=== PATIENT | female | born 1990 | race Asian ===

== ENCOUNTER 2017-01-04 09:38 | Inpatient (IN) | payer SELFPAY ==
[~2017-01-04] VITALS: Ht 171 cm; Wt 72.6 kg
[2017-01-22] MEDS ORDERED: OXYTOCIN 20 UNITS/LR PREMIX 1,000 ML IV SCH ×2 (01:52→16:35)
[2017-01-22] MEDS ORDERED: PROMETHAZINE 25 MG/ML VIAL IVP PRN (01:55)
[2017-01-22] MEDS ORDERED: OXYTOCIN 10 UNITS/ML VIAL IM ONE (01:55)
[2017-01-22] MEDS ORDERED: METHYLERGONOVINE 0.2 MG/ML AMP IM SCH (01:55)
[2017-01-22] MEDS ORDERED: CARBOPROST 250 MCG/ML AMP IM PRN (01:55)
[2017-01-22] MEDS ORDERED: NALBUPHINE 10 MG/ML AMP IVP PRN (01:55)
[2017-01-22] MEDS: LACTATED RINGERS 1,000 ML IV SCH ×3 (01:58→07:50)
[2017-01-22] MEDS ORDERED: ceFAZolin 1,000 MG VIAL ONE (05:36)
[2017-01-22] MEDS ORDERED: CITRIC ACID/SODIUM CITRATE 30 ML UDC ONE (05:36)
[2017-01-22] MEDS ORDERED: BUPIVACAINE-MPF 0.75% 10 ML VIAL INJ ONE (05:45)
[2017-01-22] MEDS ORDERED: ONDANSETRON 4 MG/2 ML VIAL ONE (05:45)
[2017-01-22] MEDS ORDERED: METHYLERGONOVINE 0.2 MG/ML AMP ONE ×3 (05:45→06:32)
[2017-01-22] MEDS ORDERED: ePHEDrine 50 MG/ML VIAL ONE (05:45)
[2017-01-22] MEDS ORDERED: OXYTOCIN 10 UNITS/ML VIAL ONE (05:49)
[2017-01-22] MEDS ORDERED: TRIAMCINOLONE 40 MG/ML 5ML VIAL ONE (05:49)
[2017-01-22] MEDS ORDERED: fentaNYL 0.05 MG/ML VIAL ONE (06:00)
[2017-01-22] MEDS ORDERED: KETAMINE 500 MG/5 ML VIAL ONE (06:00)
[2017-01-22] MEDS ORDERED: MORPHINE PRES FREE 10 MG/10 ML AMP IV ONE (06:01)
[2017-01-22] MEDS ORDERED: MIDAZOLAM 2 MG/2 ML VIAL ONE (06:01)
[2017-01-22] MEDS ORDERED: OXYTOCIN 20 UNITS/LR PREMIX 1,000 ML IV ONE (06:09)
[2017-01-22] MEDS ORDERED: ONDANSETRON 4 MG/2 ML VIAL IVP PRN (06:45)
[2017-01-22] MEDS ORDERED: KETOROLAC 30 MG/ML VIAL IVP PRN (06:45)
[2017-01-22] MEDS ORDERED: diphenhydrAMINE 50 MG/ML VIAL IVP PRN (06:45)
[2017-01-22] MEDS ORDERED: PRENATAL LOW IR1 TA1 PO (08:38)
--- NOTE | 2017-01-22 09:00 | NUR ---
PATIENT HAS BEEN SCREENED AND CATEGORIZED LOW NUTRITION RISK. PATIENT WILL BE SEEN WITHIN 7 DAYS OF ADMISSION. 01/28/[address]
--- NOTE | 2017-01-22 18:07 | NUR ---
IS INSTRUCT GIVEN TO PT VIA INTERTER [id number]
[2017-01-22] MEDS ORDERED: oxyCODONE/APAP 5/325 MG 1 TAB TAB PO PRN (20:35)
[2017-01-22] MEDS ORDERED: TEMAZEPAM 15 MG CAP PO PRN (20:35)
[2017-01-22] MEDS ORDERED: HYDROcodone/APAP 5/325 MG 1 TAB TAB PO PRN (20:35)
[2017-01-22] MEDS ORDERED: DOCUSATE SOD/SENNA 50/8.6 MG 1 TAB PO SCH (21:00)
[2017-01-22] MEDS ORDERED: SIMETHICONE 80 MG TAB.CHEW PO PRN (21:10)
[2017-01-24] MEDS: IBUPROFEN 800 MG TAB PO PRN ×2 (08:35→17:19)
[2017-01-24] MEDS ORDERED: CEPHALEXIN SUSP. 250 MG/5 ML PO SCH (12:00)
[2017-01-24] MEDS ORDERED: CEPHALEXIN 500 MG CAP PO SCH (12:30)
[2017-01-24] MEDS: CEPHALEXIN 500 MG CAP PO SCH (17:18)
[2017-01-25] MEDS: CEPHALEXIN 500 MG CAP PO SCH ×4 (00:10→17:12)
[2017-01-25] MEDS: IBUPROFEN 800 MG TAB PO PRN ×2 (11:13→17:12)
[2017-01-26] MEDS: CEPHALEXIN 500 MG CAP PO SCH ×2 (00:04→06:04)
== END 2017-01-26 10:00 | disposition home or self-care (01) | DRG 765 ==
LOC: MFCC 01-22 01:40
PROVIDERS: ADMIT Obstetrics & Gynecology; ATTEND Obstetrics & Gynecology
PROC: 10D00Z1 Extraction of Products of Conception, Low, Open Approach (ICD-10-PCS; principal; 2017-01-23)
PROC: 3E0234Z Introduction of Serum, Toxoid and Vaccine into Muscle, Percutaneous Approach (ICD-10-PCS; 2017-01-24)
DX: O99.12 Other diseases of the blood and blood-forming organs and certain disorders involving the immune mechanism complicating childbirth (principal); D69.3 Immune thrombocytopenic purpura; Z37.0 Single live birth; Z3A.39 39 weeks gestation of pregnancy; Z23 Encounter for immunization